=== PATIENT | male | born 1980 | race Caucasian/White ===

== ENCOUNTER 2018-10-26 15:43 | Outpatient (CLI) | payer OTHER ==
[2018-10-26] MEDS ORDERED: MULT-658 PO (16:10)
== END 2018-10-26 23:59 | disposition home or self-care (01) ==
LOC: STAR 15:43
PROVIDERS: ATTEND Surgery
DX: Z02.9 Encounter for administrative examinations, unspecified (principal)

== ENCOUNTER 2018-10-30 06:08 | Day surgery (SDC) | payer OTHER ==
[~2018-10-30] VITALS: Ht 188 cm; Wt 72.0 kg
[~2018-10-30 06:08] MED LIST: MULT-658 PO
[2018-10-30] MEDS ORDERED: LACTATED RINGERS 1,000 ML IV SCH (06:35)
[2018-10-30 06:37] VITALS: BP 107/65
[2018-10-30] MEDS ORDERED: BUPIVACAINE/PF-EPI 0.5% 1:200K ONE (06:39)
[2018-10-30] MEDS ORDERED: LIDOCAINE-MPF 1%, 2ML INFIL ONE (07:00)
[2018-10-30] MEDS ORDERED: FENTANYL PF 100 MCG/2ML ONE ×2 (07:28→08:49)
[2018-10-30] MEDS ORDERED: MIDAZOLAM 1 MG/ML, 2ML ONE (07:28)
[2018-10-30] MEDS ORDERED: GLYCOPYRROLATE 0.2MG/1ML, 5ML ONE (07:44)
[2018-10-30] MEDS ORDERED: METOCLOPRAMIDE 5 MG/ML, 2ML ONE (07:44)
[2018-10-30] MEDS ORDERED: ROCURONIUM 10MG/ML,5ML ONE (07:44)
[2018-10-30] MEDS ORDERED: DEXAMETHASONE 4 MG/ML, 1ML ONE (07:44)
[2018-10-30] MEDS ORDERED: CEFAZOLIN 1,000 MG ONE (07:44)
[2018-10-30] MEDS ORDERED: NEOSTIGMINE 1 MG/ML, 10ML ONE (07:44)
[2018-10-30] MEDS ORDERED: PROPOFOL 10 MG/ML, 20ML ONE (07:44)
[2018-10-30] MEDS ORDERED: ONDANSETRON 2MG/ML, 2ML ONE (07:44)
[2018-10-30] MEDS ORDERED: MEPERIDINE/PF 25MG/ML,1ML ONE (08:49)
[2018-10-30] MEDS ORDERED: OXYcodone 5 MG/5 ML ORAL.SOL UDC ONE (08:49)
[2018-10-30] MEDS ORDERED: MIDAZOLAM 1 MG/ML, 2ML IV PRN (09:00)
[2018-10-30] MEDS ORDERED: ONDANSETRON 2MG/ML, 2ML IVPush PRN (09:00)
[2018-10-30] MEDS ORDERED: OXYcodone 5 MG/5 ML ORAL.SOL UDC PO PRN (09:00)
[2018-10-30] MEDS ORDERED: HYDROmorphone 1 MG/ML, 1ML IV PRN (09:00)
[2018-10-30] MEDS ORDERED: LABETALOL 5MG/ML, 20ML IV PRN (09:00)
[2018-10-30] MEDS ORDERED: MEPERIDINE/PF 25MG/0.5ML IVPush PRN (09:00)
[2018-10-30] MEDS: FENTANYL PF 100 MCG/2ML IV PRN ×2 (09:26→09:32)
== END 2018-10-30 10:55 | disposition home or self-care (01) ==
LOC: OUT 06:08
PROVIDERS: ATTEND Surgery
DX: K40.90 Unilateral inguinal hernia, without obstruction or gangrene, not specified as recurrent (principal); E78.5 Hyperlipidemia, unspecified; F17.210 Nicotine dependence, cigarettes, uncomplicated; I10 Essential (primary) hypertension; Z72.89 Other problems related to lifestyle
CPT/HCPCS: 49650; C1727; C1781; J0690; J1100; J2175; J2250; J2405; J2704; J2710; J2765; J3010; J3490; J7120

== ENCOUNTER 2018-11-19 13:11 | Emergency (ER) | payer OTHER ==
[~2018-11-19] VITALS: Ht 190.5 cm; Wt 71.0 kg
[2018-11-19] MEDS ORDERED: LORazepam 2 MG/ML, 1ML ONE (14:09)
--- NOTE | 2018-11-19 14:10 | NUR ---
PT AMBULATED STEADILY TO BATHROOM TO PROVIDE UA
[2018-11-19] MEDS ORDERED: SODIUM CHLORIDE FLUSH 10ML SYR IVF ONE (14:30)
[2018-11-19] MEDS ORDERED: LORazepam 2 MG/ML, 1ML IVPush ONE (14:30)
--- NOTE | 2018-11-19 14:30 | NUR ---
PT CO 'ANXIOUS' X SEVERAL DAYS; INCREASED SHAKING/UE NUMBNESS AND TINGLING X TODAY. PT W/ RAPID, UNLABORED RESPIRATIONS. +CP "THE OTHER DAY", DENIES CP/SOB/N/V AT PRESENT. DENIES CARDIAC HX +RECENT COCAINE USE. BP/SPO2/ECG MONITORING IN PLACE. NSR ON MONITOR. IV ESTABSLISHED, LABS DRAWN. PT MEDICATED PER EMAR FOR ANXIETY. UA COLLECTED AND SENT TO LAB
[2018-11-19 14:49] LABS: BASOPHILS # (AUTO) 0.09 x10^3/uL (0-0.1); BASOPHILS % (AUTO) 1 % (0-1); EOSINOPHILS # (AUTO) 0.03 x10^3/uL (0-0.4); EOSINOPHILS % (AUTO) 0 % (1-7); LYMPHOCYTES # (AUTO) 2.18 x10^3/uL (1-3.4); LYMPHOCYTES % (AUTO) 13 % (22-44); MD NO; MEAN CORPUSCULAR HEMOGLOBIN 31.7 pg (27.5-34.5); MEAN CORPUSCULAR HGB CONC 33.3 g/dL (33.2-36.2); MEAN CORPUSCULAR VOLUME 95.1 fL (81-97); MEAN PLATELET VOLUME 7.4 fL (7.4-10.4); MONOCYTES # (AUTO) 0.95 x10^3/uL (0.2-0.8); MONOCYTES % (AUTO) 6 % (2-9); NEUTROPHILS # (AUTO) 13.28 x10^3/uL (1.8-6.8); NEUTROPHILS % (AUTO) 80 % (42-75); PLATELET COUNT 410 x10^3/uL (130-400); RED BLOOD COUNT 4.81 x10^6/uL (4.38-5.82)
[2018-11-19 14:57] LABS: ALANINE AMINOTRANSFERASE 27 U/L (12-78); ALBUMIN 4.4 g/dL (3.4-5.0); ANION GAP 11 mmol/L (5-15); CHLORIDE 109 mmol/L (98-107); CREATININE 1.26 mg/dL (0.7-1.3)
[2018-11-19 15:01] LABS: ALKALINE PHOSPHATASE 59 U/L (45-117); BILIRUBIN,TOTAL 0.7 mg/dL (0.2-1.0); TOTAL PROTEIN 7.2 g/dL (6.4-8.2); TROPONIN I < 0.015 ng/mL (0.000-0.045)
[2018-11-19 15:02] LABS: AMPHETAMINE SCREEN, URINE Negative (Negative); BARBITURATE SCREEN, URINE Negative (Negative); BENZODIAZEPINE SCREEN, URINE Negative (Negative); CANNABINOID SCREEN, URINE Positive (Negative); COCAINE SCREEN, URINE Positive (Negative); METHADONE SCREEN, URINE Negative (Negative); OPIATE SCREEN, URINE Negative (Negative)
[2018-11-19 15:10] VITALS: BP 120/69
--- NOTE | 2018-11-19 15:10 | NUR ---
PT REPORTS 'FEELING' MUCH BETTER. RR REGULAR, NAD NOTED. CHART UP FOR RECHECK
--- NOTE | 2018-11-19 16:08 | NUR ---
Patient/Caregiver given discharge instructions and they have confirmed that they understand the instructions. Patient ambulatory with steady gait.
== END 2018-11-19 16:10 | disposition home or self-care (01) ==
LOC: ED 14:06
DX: F41.1 Generalized anxiety disorder (principal); R06.4 Hyperventilation; F19.14 Other psychoactive substance abuse with psychoactive substance-induced mood disorder; F17.200 Nicotine dependence, unspecified, uncomplicated; Z71.6 Tobacco abuse counseling
CPT/HCPCS: 36415; 71045; 80053; 80307; 84484; 85025; 93005; 96374; 99284; J2060

== ENCOUNTER → 2021-02-03 | Outpatient (CLI) | payer OTHER ==
[~2021-02-03] MED LIST changes: +OMNIPAQUE 350 MG/ML, 75ML BOTTLE ONE
== END | disposition home or self-care (01) ==
LOC: CFH 14:05
PROVIDERS: ATTEND Family Medicine
DX: R91.1 Solitary pulmonary nodule (principal)
CPT/HCPCS: 71260; 82565; Q9967

== ENCOUNTER 2021-02-24 08:07 | Outpatient (CLI) | payer OTHER ==
[~2021-02-24 08:07] MED LIST changes: -OMNIPAQUE 350 MG/ML, 75ML BOTTLE ONE
== END 2021-02-24 23:59 | disposition home or self-care (01) ==
LOC: PETCFH 08:07
PROVIDERS: ATTEND Physician Assistant
DX: Z02.9 Encounter for administrative examinations, unspecified (principal)

== ENCOUNTER → 2021-02-26 | Outpatient (CLI) | payer OTHER | END | disposition home or self-care (01) | LOC: PETCFH 13:34 | PROVIDERS: ATTEND Physician Assistant | DX: R91.1 Solitary pulmonary nodule (principal) | CPT/HCPCS: 78815; A9552 ==